=== PATIENT | female | born 1985 | race Caucasian/White ===

== ENCOUNTER 2021-02-04 19:52 | Inpatient (IN) ==
[2021-02-04 16:46] LABS: Basophils % 0.3 %; Eosinophils # 0.1 K/mcL (0.0-0.6); Eosinophils % 0.6 %; Hematocrit 39.8 % (35.3-44.9); Hemoglobin 12.8 g/dL (11.5-15.4); Immature Granulocytes % 0.4 % (0-4); Lymphocytes # 1.8 K/mcL (0.6-4.6); Lymphocytes % 18.1 %; Mean Corpuscular HGB Conc 32.2 g/dL (31.6-35.5); Mean Corpuscular Hemoglobin 28.8 pg (28.0-33.3); Mean Corpuscular Volume 89.4 fL (83.0-100.0); Mean Platelet Volume 11.2 fL (9.4-12.4); Monocytes # 0.8 K/mcL (0.0-1.3); Monocytes % 8.1 %; Neutrophils # 7.3 K/mcL (1.6-8.9); Platelet Count 187 K/mcL (140-400); Red Blood Count 4.45 M/mcL (3.82-4.97); Red Cell Distribution Width 13.2 % (11.5-14.5); Segmented Neutrophils % 72.5 %; White Blood Count 10.1 K/mcL (4.3-11.1)
[2021-02-04 16:58] LABS: Protein/Creatinine Ratio,Urine 0.64 mg/mg (0.00-0.20)
[2021-02-04 17:05] LABS: Alanine Aminotransferase 8 Units/L (7-52); Aspartate Amino Transferase 15 Units/L (13-39); BUN/Creatinine Ratio 14 (6-26); Blood Urea Nitrogen 6 mg/dL (6-20); Lactate Dehydrogenase 146 Units/L (140-271); Uric Acid 2.9 mg/dL (2.3-7.6); eGFR For African Americans > 60 (> 60); eGFR For Non-African Americans > 60 (> 60)
[~2021-02-04 19:52] MED LIST: *HR* Labetalol 20 MG/4 ML SYRINGE IVP ONE; *HR* Labetalol 20 MG/4 ML SYRINGE IVP PRN; *HR* Nalbuphine 10 MG/ML AMPUL IV PRN; Azithromycin 500 MG in 0.9 % Sodium Chloride 250 ML IVPB ONE; Calcium Gluconate 1,000 MG/10 ML VIAL IVP PRN; Famotidine 20 MG/2 ML VIAL IVP PRN; Metoclopramide 10 MG/2 ML VIAL IVP PRN; Naloxone 0.4 MG/ML INJ IVP PRN; Ondansetron 4 MG/2 ML VIAL IVP PRN; Penicillin G Potassium 5,000,000 UNIT in 0.9 % Sodium Chloride Mini Bag 100 ML IVPB ONE; Ringers Solution, Lactated 1,000 ML IVC SCH; miSOPROStoL 25 MCG TABLET PO PRN
[2021-02-04] MEDS: Magnesium Sulf 20 gm/SW 500mL 20 GM/500 ML IV.SOLN IVC SCH (20:11)
[2021-02-04 20:39] LABS: Influenza A PCR Negative (Negative); Influenza B PCR Negative (Negative); Resp. Syncytial Virus PCR Negative (Negative)
[2021-02-04 20:41] LABS: SARS-CoV-2 by PCR (In House) Negative (Negative)
[2021-02-04] MEDS: Penicillin G Potassium 2,500,000 UNIT in 0.9 % Sodium Chloride 100 ML IVPB SCH (23:45)
[2021-02-05] MEDS ORDERED: Oxytocin 20 units/ LR 1000 mL 20 UNIT/1,000 ML BAG IVC ONE (00:52)
[2021-02-05] MEDS ORDERED: Oxytocin 20 units/ LR 1000 mL 20 UNIT/1,000 ML BAG IVC SCH ×2 (01:00→11:36)
[2021-02-05] MEDS: Penicillin G Potassium 2,500,000 UNIT in 0.9 % Sodium Chloride 100 ML IVPB SCH ×2 (03:31→07:47)
[2021-02-05] MEDS: Magnesium Sulf 20 gm/SW 500mL 20 GM/500 ML IV.SOLN IVC SCH (05:36)
[2021-02-05] MEDS ORDERED: *HR* Propofol 200 MG/20 ML VIAL IVP ONE (08:10)
[2021-02-05] MEDS ORDERED: *HR* Succinylcholine 200 MG/10 ML VIAL IVP ONE (08:14)
[2021-02-05] MEDS ORDERED: Methylergonovine 0.2 MG/ML AMPUL IM ONE (08:18)
[2021-02-05] MEDS ORDERED: *HR* Phenylephrine 10 MG/ML VIAL ONE (08:25)
[2021-02-05] MEDS ORDERED: *HR* HYDROMORPHONE 2 MG/ML VIAL ONE (08:34)
[2021-02-05] MEDS ORDERED: Ondansetron 4 MG/2 ML VIAL ONE (08:36)
[2021-02-05] MEDS ORDERED: Dexamethasone 4 MG/ML VIAL ONE (08:36)
[2021-02-05] MEDS ORDERED: Acetaminophen IV 1,000 MG/100 ML BAG IVPB ONE (08:56)
[2021-02-05] MEDS ORDERED: *HR* HYDROmorphone (PF) 1 MG/ML SYRINGE IVP PRN (08:59)
[2021-02-05] MEDS ORDERED: *HR* Meperidine 25 MG/ML SYRINGE IVP PRN (08:59)
[2021-02-05] MEDS ORDERED: Azithromycin 500 MG in 0.9 % Sodium Chloride 250 ML IVPB ONE (09:00)
[2021-02-05] MEDS ORDERED: Ondansetron 4 MG/2 ML VIAL IVP PRN (11:36)
[2021-02-05] MEDS ORDERED: Metoclopramide 10 MG/2 ML VIAL IVP PRN (11:36)
[2021-02-05] MEDS ORDERED: *HR* OxyCODONE/APAP 5/325 TABLET PO PRN (11:36)
[2021-02-05] MEDS ORDERED: Simethicone 80 MG TAB.CHEW PO PRN (11:36)
[2021-02-05] MEDS ORDERED: Sennosides 8.6 MG TABLET PO PRN (11:36)
[2021-02-05] MEDS: metroNIDAZOLE 500 MG TABLET PO SCH ×2 (15:28→19:43)
[2021-02-05] MEDS: Ibuprofen 600 MG TABLET PO PRN (15:28)
[2021-02-05] MEDS: Prenatal Vit/FA 1 EACH TABLET PO SCH (16:07)
[2021-02-05] MEDS: ceFAZolin 2,000 MG in 0.9 % Sodium Chloride 100 ML IVP SCH ×2 (16:54→19:42)
[2021-02-05 19:45] LABS: Basophils % 0.1 %; Hematocrit 29.9 % (35.3-44.9); Immature Granulocytes % 0.6 % (0-4); Lymphocytes # 0.8 K/mcL (0.6-4.6); Lymphocytes % 4.4 %; Mean Corpuscular HGB Conc 33.1 g/dL (31.6-35.5); Mean Corpuscular Hemoglobin 29.3 pg (28.0-33.3); Mean Corpuscular Volume 88.5 fL (83.0-100.0); Mean Platelet Volume 11.2 fL (9.4-12.4); Monocytes # 0.9 K/mcL (0.0-1.3); Monocytes % 4.6 %; Neutrophils # 16.6 K/mcL (1.6-8.9); Platelet Count 181 K/mcL (140-400); Red Blood Count 3.38 M/mcL (3.82-4.97); Red Cell Distribution Width 13.6 % (11.5-14.5); Segmented Neutrophils % 90.3 %; White Blood Count 18.4 K/mcL (4.3-11.1)
[2021-02-05 19:52] LABS: Hemoglobin 9.9 g/dL (11.5-15.4)
[2021-02-06] MEDS ORDERED: Lanolin 7 G OINT...G. TP PRN (03:29)
[2021-02-06] MEDS: Ibuprofen 600 MG TABLET PO PRN ×4 (03:37→23:47)
[2021-02-06] MEDS: ceFAZolin 2,000 MG in 0.9 % Sodium Chloride 100 ML IVP SCH (03:38)
[2021-02-06 05:18] LABS: Basophils % 0.2 %; Eosinophils % 0.1 %; Hematocrit 27.5 % (35.3-44.9); Hemoglobin 8.9 g/dL (11.5-15.4); Immature Granulocytes % 0.4 % (0-4); Lymphocytes # 1.8 K/mcL (0.6-4.6); Lymphocytes % 11.3 %; Mean Corpuscular HGB Conc 32.4 g/dL (31.6-35.5); Mean Corpuscular Hemoglobin 29.3 pg (28.0-33.3); Mean Corpuscular Volume 90.5 fL (83.0-100.0); Mean Platelet Volume 11.5 fL (9.4-12.4); Monocytes # 1.4 K/mcL (0.0-1.3); Monocytes % 8.5 %; Platelet Count 164 K/mcL (140-400); Red Blood Count 3.04 M/mcL (3.82-4.97); Red Cell Distribution Width 13.9 % (11.5-14.5); Segmented Neutrophils % 79.5 %; White Blood Count 16.3 K/mcL (4.3-11.1)
[2021-02-06] MEDS: Prenatal Vit/FA 1 EACH TABLET PO SCH (08:57)
[2021-02-06] MEDS: metroNIDAZOLE 500 MG TABLET PO SCH ×3 (08:58→21:00)
[2021-02-07] MEDS: Prenatal Vit/FA 1 EACH TABLET PO SCH (08:11)
[2021-02-07] MEDS: Ibuprofen 600 MG TABLET PO PRN (08:11)
[2021-02-07 11:53] VITALS: BP 140/71
== END 2021-02-07 12:55 | disposition home or self-care (01) | DRG 786 ==
LOC: 1NENULAB → 1NENUOBS 02-05 10:57
PROVIDERS: ADMIT Obstetrics & Gynecology; ATTEND Obstetrics & Gynecology